=== PATIENT | female | born 1980 | race Caucasian/White ===

== ENCOUNTER 2017-10-05 07:28 | Day surgery (SDC) | payer MEDICAID ==
[2017-10-03 14:25] LABS: BASOPHILS % (AUTO) 0.4 % (0-1); EOSINOPHILS # (AUTO) 0.3 X10'3 (0-0.9); EOSINOPHILS % (AUTO) 3.4 % (0-6); LYMPHOCYTES # (AUTO) 1.6 X10'3 (1.1-4.8); LYMPHOCYTES % (AUTO) 20.8 % (21-51); MEAN CORPUSCULAR HEMOGLOBIN 28.5 PG (27.0-31.0); MEAN CORPUSCULAR HGB CONC 34.2 % (33.0-36.5); MEAN CORPUSCULAR VOLUME 83.4 FL (78-98); MEAN PLATELET VOLUME 9.4 FL (7.4-10.4); MONOCYTES # (AUTO) 0.4 X10'3 (0-0.9); MONOCYTES % (AUTO) 5.6 % (2-12); NEUTROPHILS # (AUTO) 5.5 X10'3 (1.8-7.7); NEUTROPHILS % (AUTO) 69.8 % (42-75); PRE OP HEMOGLOBIN 14.3 g/dL (12.0-16.0); PRE OP PLATELET COUNT 195 X10'3 (140-440); RED BLOOD COUNT 5.03 X10'6 (4.20-5.60); RED CELL DISTRIBUTION WIDTH 14.6 % (11.5-14.5)
[2017-10-03 14:39] LABS: ALBUMIN 3.8 G/DL (3.4-5.0); ALKALINE PHOSPHATASE 128 IU/L (46-116); BLOOD UREA NITROGEN 15 MG/DL (7-18); BUN/CREATININE RATIO 16.5 (6.6-38.0); CALCIUM 9.1 MG/DL (8.5-10.1); CHLORIDE 106 MMOL/L (99-107); CREATININE 0.91 MG/DL (0.40-0.90); PRE OP ALT 31 U/L (30-65); PRE OP ANION GAP 11 (8-16); PRE OP AST 18 U/L (10-37); PRE OP BILIRUB, TOTAL 0.9 MG/DL (0.0-1.0); PRE OP GLUCOSE 110 MG/DL (70-104); PRE OP POTASSIUM 3.8 MMOL/L (3.4-5.1); PRE OP SODIUM 143 MMOL/L (135-145); TOTAL CARBON DIOXIDE 26.2 MMOL/L (24-32); TOTAL PROTEIN 7.5 G/DL (6.4-8.2); eGFR 70 ML/MIN
[2017-10-03 14:52] LABS: HCG SERUM QL NEGATIVE
[~2017-10-05] VITALS: Ht 157.5 cm; Wt 113.7 kg
[~2017-10-05 07:28] MED LIST: ALBU18HF2 INH; TIOT18CA3; ceFAZolin inj. 2,000 MG in dextrose 5%-water 100 ML IV ONE; famotidine 20mg tablet PO ONE; ringers solution, lacted 1,000 ML IV SCH
[2017-10-05 08:48] VITALS: BP 110/74
[2017-10-05 08:50] VITALS: BP 110/74
[2017-10-05] MEDS ORDERED: clindamycin 600mg/D5W 50ml 50 ML IV ONE (09:20)
[2017-10-05] MEDS ORDERED: ROPIVAcaine 0.5% (5mg/ml) 30ml vial ONE (10:15)
[2017-10-05] MEDS ORDERED: LIDOcaine 0.5% (5mg/ml) 50ml vial ONE (10:16)
[2017-10-05] MEDS ORDERED: MIDAZolam 1mg/ml 10ml vial ONE (10:18)
[2017-10-05] MEDS ORDERED: ringers solution, lacted 1,000 ML IV ONE (10:32)
[2017-10-05] MEDS ORDERED: ondansetron/PF 4mg/2ml inj IV PRN (10:35)
[2017-10-05] MEDS ORDERED: labetalol 20mg/4ml (5mg/ml) syringe IV PRN (10:35)
[2017-10-05] MEDS ORDERED: hydrALAZINE 20mg/ml inj. IV PRN (10:35)
[2017-10-05] MEDS ORDERED: morphine 4 MG/ML inj SYRINge IV PRN ×2 (10:35)
[2017-10-05] MEDS ORDERED: meperidine/PF 25mg/ml syringe IV PRN ×3 (10:35)
[2017-10-05] MEDS ORDERED: propofol inj 20 ML IV ONE (10:58)
[2017-10-05] MEDS ORDERED: LIDOcaine 1%/PF (10mg/ml) 5ml vial ONE (10:58)
[2017-10-05 11:10] VITALS: BP 146/74
[2017-10-05 11:20] VITALS: BP 109/88
[2017-10-05 11:30] VITALS: BP 122/78
[2017-10-05 11:40] VITALS: BP 124/75
== END 2017-10-05 11:50 | disposition home or self-care (01) ==
LOC: PAS 07:28
PROVIDERS: ATTEND Orthopaedic Surgery Hand Surgery
DX: G56.02 Carpal tunnel syndrome, left upper limb (principal); J45.998 Other asthma; E66.9 Obesity, unspecified; Z88.0 Allergy status to penicillin; Z90.49 Acquired absence of other specified parts of digestive tract; Z98.890 Other specified postprocedural states; Z79.899 Other long term (current) drug therapy; Z68.42 Body mass index [BMI] 45.0-49.9, adult
CPT/HCPCS: 29848; 36415; 80053; 84703; 85025; A6449; J2001; J2250; J2704; J2795; J3490; J7120; A7000; J0690; J7060

== ENCOUNTER 2017-11-16 07:29 | Day surgery (SDC) | payer MEDICAID ==
[~2017-11-16] VITALS: Ht 157.5 cm; Wt 116.7 kg
[~2017-11-16 07:29] MED LIST changes: +BUDE10.22 INH; -TIOT18CA3; +albuterol 2.5 MG/3 ML nebule NEB ONE; -ceFAZolin inj. 2,000 MG in dextrose 5%-water 100 ML IV ONE; +clindamycin 600mg/D5W 50ml 50 ML IV ONE
[2017-11-16] MEDS ORDERED: CEFD300C3 PO (08:14)
[2017-11-16 08:31] LABS: BASOPHILS % (AUTO) 0.6 % (0-1); EOSINOPHILS # (AUTO) 0.2 X10'3 (0-0.9); EOSINOPHILS % (AUTO) 4.3 % (0-6); LYMPHOCYTES # (AUTO) 1.7 X10'3 (1.1-4.8); LYMPHOCYTES % (AUTO) 30.2 % (21-51); MEAN CORPUSCULAR HEMOGLOBIN 28.6 PG (27.0-31.0); MEAN CORPUSCULAR HGB CONC 33.8 % (33.0-36.5); MEAN CORPUSCULAR VOLUME 84.6 FL (78-98); MONOCYTES # (AUTO) 0.3 X10'3 (0-0.9); MONOCYTES % (AUTO) 6.1 % (2-12); NEUTROPHILS # (AUTO) 3.2 X10'3 (1.8-7.7); NEUTROPHILS % (AUTO) 58.8 % (42-75); PRE OP HEMATOCRIT 42.1 % (35.0-45.0); PRE OP HEMOGLOBIN 14.2 g/dL (12.0-16.0); PRE OP PLATELET COUNT 171 X10'3 (140-440); RED BLOOD COUNT 4.98 X10'6 (4.20-5.60); RED CELL DISTRIBUTION WIDTH 14.3 % (11.5-14.5)
[2017-11-16 08:41] LABS: ALBUMIN 3.6 G/DL (3.4-5.0); ANION GAP 8 (8-16); BLOOD UREA NITROGEN 16 MG/DL (7-18); BUN/CREATININE RATIO 18.8 (6.6-38.0); CALCIUM 8.6 MG/DL (8.5-10.1); CHLORIDE 106 MMOL/L (99-107); CREATININE 0.85 MG/DL (0.40-0.90); GLUCOSE 105 MG/DL (70-104); POTASSIUM 4.3 MMOL/L (3.5-5.1); SODIUM 142 MMOL/L (135-145); TOTAL CARBON DIOXIDE 27.6 MMOL/L (24-32); eGFR 76 ML/MIN
[2017-11-16 08:48] VITALS: BP 137/95
[2017-11-16 08:49] VITALS: BP 137/95
[2017-11-16 09:10] LABS: HCG SERUM QL NEGATIVE
[2017-11-16] MEDS ORDERED: BUPIVAcaine/PF 2.5mg/ml (0.25%) 10ml vial ONE (09:28)
[2017-11-16] MEDS ORDERED: LIDOcaine 0.5% (5mg/ml) 50ml vial ONE (09:47)
[2017-11-16] MEDS ORDERED: fentaNYL/PF 50MCG/1 ML 2ML syringe ONE (09:56)
[2017-11-16] MEDS ORDERED: midazolam 2 mg/2 ml injection ONE ×2 (09:56)
[2017-11-16 10:25] VITALS: BP 107/66
[2017-11-16] MEDS ORDERED: ondansetron/PF 4mg/2ml inj IV PRN (10:30)
[2017-11-16] MEDS ORDERED: morphine 4 MG/ML inj SYRINge IV PRN ×2 (10:30)
[2017-11-16] MEDS ORDERED: ringers solution, lacted 1,000 ML IV SCH (10:30)
[2017-11-16] MEDS ORDERED: proCHLORperazine 10 MG/2 ml inj IV PRN (10:30)
[2017-11-16] MEDS ORDERED: meperidine/PF 25mg/ml syringe IV PRN ×3 (10:30)
[2017-11-16 10:35] VITALS: BP 103/67
[2017-11-16 10:45] VITALS: BP 108/66
[2017-11-16 10:55] VITALS: BP 111/64
== END 2017-11-16 10:55 | disposition home or self-care (01) ==
LOC: PAS 07:29
PROVIDERS: ATTEND Orthopaedic Surgery Hand Surgery
DX: G56.01 Carpal tunnel syndrome, right upper limb (principal); G43.909 Migraine, unspecified, not intractable, without status migrainosus; E66.9 Obesity, unspecified; J45.998 Other asthma; Z90.49 Acquired absence of other specified parts of digestive tract; Z68.42 Body mass index [BMI] 45.0-49.9, adult; Z88.0 Allergy status to penicillin; Z98.890 Other specified postprocedural states; Z79.899 Other long term (current) drug therapy
CPT/HCPCS: 29848; 36415; 80048; 84703; 85025; 93005; 94640; A4565; A6449; J2001; J2250; J3010; J3490; J7120; A7000

== ENCOUNTER 2020-12-19 14:10 | Emergency (ER) | payer MEDICAID ==
[~2020-12-19] VITALS: Ht 160 cm; Wt 134.6 kg
[~2020-12-19 14:10] MED LIST changes: +CEFD300C3 PO; -albuterol 2.5 MG/3 ML nebule NEB ONE; -clindamycin 600mg/D5W 50ml 50 ML IV ONE; -famotidine 20mg tablet PO ONE; -ringers solution, lacted 1,000 ML IV SCH
[2020-12-19 14:46] VITALS: BP 153/93
[2020-12-19] MEDS ORDERED: predniSONE 20 mg tablet PO ONE (14:50)
[2020-12-19] MEDS ORDERED: ipratropium/albuterol 3ml nebule NEB ONE (14:50)
[2020-12-19] MEDS ORDERED: ALBU6.7H9 INH (15:20)
[2020-12-19] MEDS ORDERED: PRED20TA PO (15:20)
[2020-12-19] MEDS ORDERED: albuterol 2.5 MG/3 ML nebule NEB ONE (15:25)
[2020-12-19] MEDS ORDERED: IPRA3AMP31 IH (15:30)
[2020-12-20] MEDS ORDERED: BENZ-16 PO (19:06)
== END 2020-12-19 17:01 | disposition home or self-care (01) ==
LOC: ER 14:14
DX: J45.901 Unspecified asthma with (acute) exacerbation (principal); Z88.0 Allergy status to penicillin; Z88.1 Allergy status to other antibiotic agents; Z79.899 Other long term (current) drug therapy
CPT/HCPCS: 71045; 94640; 94760; 99284

== ENCOUNTER 2020-12-20 15:07 | Emergency (ER) | payer MEDICAID ==
[~2020-12-20] VITALS: Ht 160 cm; Wt 134.6 kg
[~2020-12-20 15:07] MED LIST changes: +ALBU6.7H9 INH; +IPRA3AMP31 IH; +PRED20TA PO
[2020-12-20] MEDS ORDERED: albuterol 2.5 MG/3 ML nebule NEB ONE (15:45)
[2020-12-20 16:00] LABS: BASOPHILS % (AUTO) 0.2 % (0-1); EOSINOPHILS % (AUTO) 0.2 % (0-6); HEMATOCRIT 41.7 % (35.0-45.0); HEMOGLOBIN 13.6 g/dl (12.0-16.0); LYMPHOCYTES # (AUTO) 0.7 X10'3 (1.1-4.8); LYMPHOCYTES % (AUTO) 11.3 % (21-51); MEAN CORPUSCULAR HEMOGLOBIN 28.4 PG (27.0-31.0); MEAN CORPUSCULAR HGB CONC 32.7 g/dL (33.0-36.5); MEAN CORPUSCULAR VOLUME 86.8 FL (78-98); MONOCYTES # (AUTO) 0.5 X10'3 (0-0.9); MONOCYTES % (AUTO) 8.1 % (2-12); NEUTROPHILS # (AUTO) 5.2 X10'3 (1.8-7.7); NEUTROPHILS % (AUTO) 80.2 % (42-75); PLATELET COUNT 188 X10'3 (140-440); RED CELL DISTRIBUTION WIDTH 14.8 % (11.5-14.5); WHITE BLOOD COUNT 6.5 X10'3 (4.5-11.0)
[2020-12-20 16:13] LABS: D-DIMER 0.28 MG/L FEU (0-0.50)
[2020-12-20 16:15] LABS: ALBUMIN 3.7 G/DL (3.4-5.0); ANION GAP 11 (8-16); BLOOD UREA NITROGEN 11 MG/DL (7-18); BUN/CREATININE RATIO 15.3 (6.6-38.0); CALCIUM 9.2 MG/DL (8.5-10.1); CHLORIDE 109 MMOL/L (99-107); CREATININE 0.72 MG/DL (0.40-0.90); GLUCOSE 159 MG/DL (70-104); POTASSIUM 3.6 MMOL/L (3.5-5.1); SODIUM 145 MMOL/L (135-145); TOTAL CARBON DIOXIDE 24.6 MMOL/L (24-32); eGFR 90 ML/MIN
[2020-12-20] MEDS ORDERED: albuterol 2.5 MG/3 ML nebule CONTNEB PRN (17:45)
[2020-12-20] MEDS ORDERED: BENZ-16 PO (19:06)
== END 2020-12-21 02:31 | disposition home or self-care (01) ==
LOC: ER 15:07
DX: J45.901 Unspecified asthma with (acute) exacerbation (principal); Z88.0 Allergy status to penicillin; Z88.1 Allergy status to other antibiotic agents; Z20.822 Contact with and (suspected) exposure to COVID-19
CPT/HCPCS: 36415; 71045; 80048; 85025; 85379; 87635; 94640; 99285; C9803; 94760; A7015